=== PATIENT | female | born 1960 | race Caucasian/White ===

== ENCOUNTER 2018-04-11 19:46 | Emergency (ER) | payer MEDICARE ==
[~2018-04-11] VITALS: Ht 157.5 cm; Wt 113.4 kg
[~2018-04-11 19:46] MED LIST: ACCUPRIL40 MG PO; APPLE CIDER VI500 MG PO; ASPIRIN EC81 MG PO; BACTRIM DS TAB1 EACH PO; DICLOFENAC SODI75 MG PO; DOK100 MG PO; EFFEXOR XR150 MG PO; FENOFIBRATE160 MG PO; K-TAB ER20 MEQ PO; MEDROL4 M1 PO; METOPROLOL SUCC25 MG PO; MULTI VITAMIN1 EACH PO; NORCO 10-325 T1 EACH PO; PLAQUENIL200 MG PO; POTASSIUM CHLO20 ME1 PO; SIMVASTATIN20 MG PO; TOPAMAX100 MG PO; TRAZODONE HCL50 MG PO; TRIAMTERENE-HC1 EAC1 PO; VENLAFAXINE HCL75 MG PO; VITAMIN D32000 UNIT PO; WELLBUTRIN SR100 MG PO
--- OUTSIDE RECORDS SUMMARY | 2018-04-11 19:48 | XMS ---
PreManage Notification: KELLY WELDON Security Software Consultant Events No recent Security Events currently on file CRITERIA MET - PARESHP CARE PROVIDERS Carlos Degroot Current PHONE: Unknown Robert has no Care Guidelines for this patient. [facility] VISIT COUNT (12 MO.) 1 SHANIQU[facility] [place] TOTAL 1 NOTE: Visits indicate total known visits. ED/UCC VISIT TRACKING (12 MO.) 04/11/2018 19:[address] [facility] [place] TYPE: Emergency COMPLAINT: - MEDICAL CLEARANCE INPATIENT VISIT TRACKING (12 MO.) No inpatient visits to display in this time frame [id number]
[2018-04-11] MEDS ORDERED: VENLAFAXINE HCL75 MG PO (20:24)
== END 2018-04-12 07:03 | disposition home or self-care (01) ==
LOC: ED 19:46
PROC: 0T9B70Z Drainage of Bladder with Drainage Device, Via Natural or Artificial Opening (ICD-10-PCS; principal; 2018-04-11)
DX: R46.1 Bizarre personal appearance (principal); M32.9 Systemic lupus erythematosus, unspecified; Z90.710 Acquired absence of both cervix and uterus; Z88.7 Allergy status to serum and vaccine; Z88.8 Allergy status to other drugs, medicaments and biological substances; Z79.899 Other long term (current) drug therapy; Z79.82 Long term (current) use of aspirin; Z51.81 Encounter for therapeutic drug level monitoring
CPT/HCPCS: 51701; 70450; 80053; 80176; 81001; 84443; 85025; 85610; 85730; 99285-25; G0480; J1885; J2405; J2765

== ENCOUNTER 2018-07-25 12:39 | Emergency (ER) | payer MEDICARE ==
[~2018-07-25] VITALS: Ht 157.5 cm; Wt 113.4 kg
--- OUTSIDE RECORDS SUMMARY | ~2018-07-25 | XMS | Encounter Summary ---
Demographics + + + | Address | [address] | | | [place] [address] | + + + | Home Phone | | + + + | Preferred Language | Unknown | + + + | Marital Status | | + + + | Nondenominational Affiliation | Unknown | + + + | Race | White | + + + | Ethnic Group | Not or | + + + Author + + + | Author | [facility] | + + + | Organization | [facility] | + + + | Address | Unknown | + + + | Phone | Unavailable | + + + Support + + +---------+ + | Name | Relationship | Address | Phone | + + +---------+ + | Murtaza Mancera | ECON | Unknown | | + + +---------+ + Care Team Providers + +------+ + | Care Jewelry Dipper Name | Role | Phone | + +------+ + | Carlos Degroot MD | PCP | | + +------+ + Reason for Referral Diagnostic Testing +--------+--------+ + + + + | Status | Reason | Specialty | Diagnoses / | Referred By | Referred To | | | | | Procedures | Contact | Contact | +--------+--------+ + + + + | Closed | | Clinical | Procedures | Cnl Eeg | Cnl Eeg Hrc | | | | Neurophysiolo | EEG | Hrc [address] | | | | gy | ROUTINE | [address] | | | | | | [facility] | [address] | | | | | | Road | Mailcode: | | | | | | Mailcode: | CR[address] | | | | | | [address] | [place] | | | | | | [address] | Research | | | | | | Research | Center | | | | | | Center | [place], [place] | | | | | | [place], [place] | [address] | | | | | | [address] | Phone: | | | | | | Phone: | [phone] | | | | | | [phone] | Fax: | | | | | | Fax: | [phone] | | | | | | [phone] | | +--------+--------+ + + + + Encounter Details +--------+ + + + + | Date | Type | Department | Care Team | Description | +--------+ + + + + | 06/01/ | Outside | Neurophysiology | Carlos Degroot | | | 2012 | Referral | EEG at [facility] [address] | MD FELICIA Pérez | | | | Order | [facility] | [facility] | | | | | Road Mailcode: | [address] | | | | | [address] | [place] [address] | | | | | [facility] | [phone] | | | | | [place], [place] | | | | | | [address] | | | | | | [phone] | | | +--------+ + + + + Social History + +-------+ +--------+------+ | Tobacco Use | Types | Packs/Day | Years | Date | | | | | Used | | + +-------+ +--------+------+ | Never Assessed | | | | | + +-------+ +--------+------+ + + + | Sex Assigned at | Date Recorded | | | | + + + | Not on file | | + + + + + + + | Job Start Date | Occupation | Industry | + + + + | Not on file | Not on file | Not on file | + + + + + + + + | Travel History | Travel Start | Travel End | + + + + + + | No recent travel history available. | + + documented as of this encounter Plan of Treatment Not on filedocumented as of this encounter Procedures + +--------+ + + + | Procedure Name | Priori | Date/Time | Associated Diagnosis | Comments | | | ty | | | | + +--------+ + + + | EEG ROUTINE | Routin | 05/31/2012 | | Results for this | | | e | | | procedure are in the | | | | | | results section. | + +--------+ + + + documented in this encounter Results EEG ROUTINE (05/31/2012) + + | Specimen | + + | | + + + + + | Narrative | Performed At | + + + | Patient Name: Violet Gonzalez Date of : 1960 | [facility] | | Date of Test: 05/31/2012 Place | HOSPITAL | | of Service: [facility] Department: EEG [facility] - [id number] | | | ROUTINE EEG Indication: 51 year old woman with diagnosis of SLE, | | | now with speech difficulties and tremor. Evaluate for focal or | | | epileptiform abnormalities. Medications: Venlafaxine, and | | | others. Not on anti-seizure medication. Methods: This study was | | | a Routine EEG with a duration of 25 minutes. The digital recording | | | was performed with routine electrodes applied according to the 10-20 | | | electrode placement system. The record included video, EKG, and EOG | | | monitoring. EEG was reviewed electronically. Automated digital spike | | | and seizure detection analysis was used, along with patient-activated | | | alarms and nursing observations. EEG Description Interictal | | | Record: The record shows a symmetric, well-modulated, posterior | | | dominant rhythm of 10 Hz that attenuates with eye opening. Photic | | | stimulation results in a symmetric photic driving response. Sleep is | | | not recorded. Events/Seizures: No events or seizures are | | | recorded. EKG: The single-channel EKG recording shows a normal | | | sinus rhythm. Interpretation: This is a normal awake routine | | | EEG. No epileptiform abnormalities are present. No seizures are | | | recorded. A normal EEG does not rule out a clinical diagnosis of | | | epilepsy. Myesha Haney M.D. Suggested CPT: 95988 - EEG | | | Routine Awake Only Suggested Dx: 780.39 - Convulsions | | | Electronically signed on 06/01/2012 at 1:37 PM MYESHA HANEY MD. | | | | | + + + + +---------+ + + | Performing | Address | City/State/Zipcode | Phone Number | | Organization | | | | + +---------+ + + | [facility] | | | [phone] | | [facility] | | | | + +---------+ + + | [facility] | | [place] | [phone] | | [facility] | | | | + +---------+ + + documented in this encounter Visit Diagnoses Not on filedocumented in this encounter"
--- OUTSIDE RECORDS SUMMARY | ~2018-07-25 | XMS | Encounter Summary ---
Demographics + + + | Address | [address] | | | [place] [address] | + + + | Home Phone | | + + + | Preferred Language | Unknown | + + + | Marital Status | | + + + | Sikhism Affiliation | Unknown | + + + | Race | White | + + + | Ethnic Group | Not or | + + + Author + + + | Author | [facility] | + + + | Organization | [facility] | + + + | Address | Unknown | + + + | Phone | Unavailable | + + + Support + + +---------+ + | Name | Relationship | Address | Phone | + + +---------+ + | Murtaza Mancera | ECON | Unknown | | + + +---------+ + Care Team Providers + +------+ + | Care Flatcar Whacker Name | Role | Phone | + +------+ + PCP | Unavailable | + +------+ + Encounter Details +--------+ + + + + | Date | Type | Department | Care Team | Description | +--------+ + + + + | 08/29/ | Document-Sc | UNKNOWN DEPARTMENT | Unknown . | | | 2013 | anned | [address] | | | | | | [facility] | | | | | | [place], [place] | | | | | | [address] | | | +--------+ + + + [...] Not on filedocumented as of this encounter Visit Diagnoses Not on filedocumented in this encounter"
--- OUTSIDE RECORDS SUMMARY | ~2018-07-25 | XMS | Encounter Summary ---
Demographics + + + | Address | [address] | | | [place] [address] | + + + | Home Phone | | + + + | Preferred Language | Unknown | + + + | Marital Status | | + + + | Denominational Affiliation | Unknown | + + + | Race | White | + + + | Ethnic Group | Not or | + + + Author + + + | Author | [facility] | + + + | Organization | [facility] | + + + | Address | Unknown | + + + | Phone | Unavailable | + + + Support + + +---------+ + | Name | Relationship | Address | Phone | + + +---------+ + | Murtaza Mancera | ECON | Unknown | | + + +---------+ + Care Team Providers + +------+ + | Care Analytical Strategist Name | Role | Phone | + +------+ + | Carlos Degroot MD | PCP | | + +------+ + Encounter Details +--------+ + + + + | Date | Type | Department | Care Team | Description | +--------+ + + + + | 09/08/ | Document-Sc | Health Information | Unknown . | | | 2014 | anned | Services [address] | | | | | | [address] | | | | | | Road Mailcode: | | | | | | [address] | | | | | | [facility] | | | | | | [place], [place] | | | | | | [address] | | | | | | [phone] | | | +--------+ + + + [...] | + +--------+ + + + | RADIOLOGY | | 09/08/2014 | | Results for this | | | | 12:00 AM | | procedure are in the | | | | PDT | | results section. | + +--------+ + + + documented in this encounter Results RADIOLOGY (09/08/2014 12:00 AM PDT) + + + | Narrative | Performed At | + + + | | | + + + documented in this encounter Visit Diagnoses Not on filedocumented in this encounter"
--- OUTSIDE RECORDS SUMMARY | ~2018-07-25 | XMS | Clinical Summary ---
Demographics + + + | Address | [address] | | | [place] [address] | + + + | Home Phone | | + + + | Preferred Language | Unknown | + + + | Marital Status | | + + + | Faith Affiliation | 1013 | + + + | Race | Unknown | + + + | Ethnic Group | Unknown | + + + Author + + + | Author | [facility] | + + + | Organization | [facility] | + + + | Address | Unknown | + + + | Phone | Unavailable | + + + Support + + +---------+ + | Name | Relationship | Address | Phone | + + +---------+ + | Joselito Garcia And | ECON | Unknown | | | Jacqueline | | | | + + +---------+ + Care Team Providers + +------+ + | Care Living Advisor Name | Role | Phone | + +------+ + | Carlos Degroot MD | PP | | + +------+ + Allergies + + + + + + | Active Allergy | Reactions | Severity | Noted | Comments | | | | | Date | | + + + + + + | Flu Virus Vaccine | Swelling | Medium | 02/27/19 | | | | | | 16 | | + + + + + + | Droperidol | Hallucinations , | Medium | 02/08/20 | Extrapyramidal | | | Other (See Comments) | | 14 | symptoms | + + + + + + | Methotrexate | Rash | Medium | /16/20 | And sores on skin | | Derivatives | | | 14 | Sore | + + + + + + | Tuberculin Purified | Swelling | Medium | /16/20 | Drug: PPD; | | Protein Derivative | | | 14 | Reaction: Swelling | | | | | | in arm | + + + + + + | Tetanus Toxoid | Swelling | Medium | //20 | | | | | | 16 | | + + + + + + | Tetanus Toxoids | Swelling | Medium | 12/16/20 | Drug: PPD; | | | | | 14 | Reaction: Swelling | | | | | | in arm | + + + + + + Current Medications + + +--------+---------+------+------+-------+ | Prescription | Sig. | Disp. | Refills | Star | End | Statu | | | | | | t | Date | s | | | | | | Date | | | + + +--------+---------+------+------+-------+ | methylPREDNISolone | Take 4 mg by mouth | | | | | Activ | | (MEDROL) 4 MG | as needed. | | | | | e | | tablet | | | | | | | + + +--------+---------+------+------+-------+ | | Take 1-2 tablets by | | | | | Activ | | HYDROcodone-acetamin | mouth every 6 (six) | | | | | e | | ophen (NORCO) 10-325 | hours as needed for | | | | | | | MG per tablet | Pain. | | | | | | + + +--------+---------+------+------+-------+ | traZODone | Take 100 mg by mouth | | | | | Activ | | (DESYREL) 50 MG | as needed. | | | | | e | | tablet | | | | | | | + + +--------+---------+------+------+-------+ | diclofenac | Take 75 mg by mouth | | | | | Activ | | (VOLTAREN) 75 MG EC | 2 (two) times daily. | | | | | e | | tablet | | | | | | | + + +--------+---------+------+------+-------+ | venlafaxine | Take 150 mg by mouth | | | | | Activ | | (EFFEXOR-XR) 150 MG | daily with | | | | | e | | 24 hr capsule | breakfast. | | | | | | + + +--------+---------+------+------+-------+ | | Take 1 tablet by | | | | | Activ | | triamterene-hydrochl | mouth daily. | | | | | e | | orothiazide | | | | | | | | (MAXZIDE-25) 37.5-25 | | | | | | | | MG per tablet | | | | | | | + + +--------+---------+------+------+-------+ | aspirin 81 MG | Take 81 mg by mouth | | | | | Activ | | tablet | 2 (two) times daily. | | | | | e | + + +--------+---------+------+------+-------+ | metoprolol | Take 25 mg by mouth | | | | | Activ | | (TOPROL-XL) 25 MG 24 | daily. | | | | | e | | hr tablet | | | | | | | + + +--------+---------+------+------+-------+ | Fenofibrate 150 MG | Take by mouth. | | | | | Activ | | CAPS | | | | | | e | + + +--------+---------+------+------+-------+ | simvastatin | Take 40 mg by mouth | | | | | Activ | | (ZOCOR) 40 MG tablet | daily. | | | | | e | + + +--------+---------+------+------+-------+ | potassium chloride | Take 20 mEq by mouth | | | | | Activ | | (KLOR-CON) 20 MEQ | daily. | | | | | e | | packet | | | | | | | + + +--------+---------+------+------+-------+ | buPROPion | Take 300 mg by mouth | | | | | Activ | | (WELLBUTRIN XL) 300 | every morning. | | | | | e | | MG 24 hr tablet | | | | | | | + + +--------+---------+------+------+-------+ | APPLE CIDER | Take 150 mg by | | | | | Activ | | VINEGAR PO | mouth. | | | | | e | + + +--------+---------+------+------+-------+ | topiramate | Take 1 tablet by | 90 | 5 | 04/0 | | Activ | | (TOPAMAX) 100 MG | mouth 2 (two) times | tablet | | 3/20 | | e | | tablet | daily. Take 1.5 tabs | | | 18 | | | | | by mouth twice | | | | | | | | daily. | | | | | | + + +--------+---------+------+------+-------+ | sulfaSALAzine | Take 2 tablets by | 120 | 3 | 04/0 | | Activ | | (AZULFIDINE) 500 MG | mouth 2 (two) times | tablet | | 3/20 | | e | | tabletIndications: | daily. | | | 18 | | | | Systemic lupus | | | | | | | | erythematosus, | | | | | | | | unspecified SLE | | | | | | | | type, unspecified | | | | | | | | organ involvement | | | | | | | | status (HCC) | | | | | | | + + +--------+---------+------+------+-------+ | aspirin EC 81 MG | Take 81 mg by mouth | | | | | Activ | | EC tablet | 2 (two) times daily. | | | | | e | + + +--------+---------+------+------+-------+ | Cholecalciferol | Take 2,000 Units by | | | | | Activ | | (VITAMIN D3) 2000 | mouth. | | | | | e | | units capsule | | | | | | | + + +--------+---------+------+------+-------+ | KLOR-CON M20 20 | | | | 07/0 | | Activ | | MEQ tablet | | | | 9/20 | | e | | | | | | 18 | | | + + +--------+---------+------+------+-------+ | hydroxychloroquine | Take 2 tablets every | 60 | 3 | 07/1 | | Activ | | (PLAQUENIL) 200 MG | morning | tablet | | 6/20 | | e | | tablet | | | | 18 | | | + + +--------+---------+------+------+-------+ Active Problems + + + | Problem | Noted Date | + + + | Anxiety | 09/07/2017 | + + + | Depression | 09/07/2017 | + + + | Headache | 09/07/2017 | + + + | Hypertension | 09/07/2017 | + + + | High cholesterol | 09/07/2017 | + + + | Neuropathy | 09/07/2017 | + + + | Systemic lupus erythematosus (HCC) | 05/26/2017 | + + + + + | Last Assessment & Plan: Patient does have a Positive BRIAN | | with low titer dsDNA of 7. We will keep this as a running | | diagnosis but the polyarthralgia's could be linked to UCTD and | | not actually lupus. - she has had marked improvement on the HCQ | | and SSZ - we will continue treatment of care and make no changes | | at this time | + + + + + | Polyarthritis | 05/26/2017 | + + + + + | Last Assessment & Plan: The patient originally presented with | | the complaints of joint pain in her PIP, wrist and feet. She has | | had marked improvement in her joint pain and states she is | | feeling the best she has felt in quite some time in regards to | | her autoimmune. We will make no changes at this time and see her | | back in 4 months as well as update blood work | + + + + + | High risk medication use | 05/26/2017 | + + + + + | Last Assessment & Plan: Counseled regarding medication | | compliance as well as potential toxicities with medications such | | as cytopenias, liver abnormalities and risks for infection, and | | the need for routine blood work monitoring. Basic labs Monitored | | (CBC,CMP and ESR): OrderedLabs routinely ordered due to high | | risk medication use- Monitored for cytopenias, liver toxicity, | | renal dysfunction and disease activity. Hepatitis panel negative | | 02/2015 This will be checked every 5 years based on patients risk | | or at time of biologic drug change. Eye exam satisfactory - | | letter given to obtain The major posible side effect of | | Plaquenil is retinal toxicity, which is very rare at the dose we | | use (which is less than 5 mg/kg per day). This side effect | | happens 1 in 5000 usually after 5 years of use. To detect this | | possibility they will need to be seen by an railway signal technician at | | least once a year. | + + + + + | Acute adrenal crisis (HCC) | 08/23/2014 | + + + | Hypotension arterial | 08/22/2014 | + + + | Pseudotumor cerebri | 07/12/2014 | + + + Family History + +------+--------+ + | Relation | Name | Status | Comments | + +------+--------+ + | Father | | Alive | | + +------+--------+ + | Mother | | Alive | | + +------+--------+ + Social History + +-------+ +--------+------+ | Tobacco Use | Types | Packs/Day | Years | Date | | | | | Used | | + +-------+ +--------+------+ | Never Smoker | | | | | + +-------+ +--------+------+ + +---+---+---+ | Smokeless Tobacco: | | | | | Never Used | | | | + +---+---+---+ + + | Tobacco Cessation: Counseling Given: No | + + + + +---------+ + | Alcohol Use | Drinks/We | oz/Week | Comments | | | ek | | | + + +---------+ + | No | | | | + + +---------+ + + + + | Sex Assigned at | Date Recorded | | | | + + + | Not on file | | + + + Last Filed Vital Signs + + + + | Vital Sign | Reading | Time Taken | + + + + | Blood Pressure | 144/90 | 09/07/2017 12:09 PM PDT | + + + + | Pulse | 76 | 09/07/2017 12:09 PM PDT | + + + + | Temperature | 37.2 C (99 F) | 09/07/2017 12:09 PM PDT | + + + + | Respiratory Rate | 14 | 08/07/2017 8:02 AM PDT | + + + + | Oxygen Saturation | 97% | 08/25/2017 1:31 PM PDT | + + + + | Inhaled Oxygen | - | - | | Concentration | | | + + + + | Weight | 108.9 kg (240 lb) | 09/07/2017 12:09 PM PDT | + + + + | Height | 157.5 cm (5' 2") | 09/07/2017 12:09 PM PDT | + + + + | Body Mass Index | 43.9 | 09/07/2017 12:09 PM PDT | + + + + Plan of Treatment + + + + + | Health Maintenance | Due Date | Last Done | Comments | + + + + + | Cervical Cancer | | | | | Screening (Pap) | 2 | | | + + + + + | Breast Cancer | | | | | Screening | 2 | | | | (Mammogram) | | | | + + + + + | Colon Cancer | | | | | Screening | 2 | | | | (Colonoscopy) | | | | + + + + + | Vaccine: Zoster (1 | | | | | of 2) | 2 | | | + + + + + Results Not on filefrom Last 3 Months Insurance + +--------+ +------+-------+ + | Payer | Benefi | Subscriber | Type | Phone | Address | | | t Plan | ID | | | | | | / | | | | | | | Group | | | | | + +--------+ +------+-------+ + | MEDICARE | MEDICA | [id number] | | | [address] | | | RE | | | | [place] [address] | | | IP-OP | | | | | + +--------+ +------+-------+ + | [facility] | UNITED | [id number] | | | | | | | | | | | | | HEALTH | | | | | | | CARE - | | | | | | | AARP | | | | | + +--------+ +------+-------+ + + +--------+ +--------+ + + | Guarantor Name | Accoun | Relation to | Date | Phone | Billing Address | | | t Type | Patient | of | | | | | | | | | | + +--------+ +--------+ + + | KELLY WELDON | Person | Self [birth year] Home: | [address] | | | al/Fam | | 1961 | [phone] | [place] [address] | | | suzy | | | [phone] | | + +--------+ +--------+ + +
--- OUTSIDE RECORDS SUMMARY | ~2018-07-25 | XMS | Clinical Summary ---
Demographics + + + | Address | [address] | | | [place] [address] | + + + | Home Phone | | + + + | Preferred Language | Unknown | + + + | Marital Status | | + + + | Hinduism Affiliation | 1013 | + + + | Race | Unknown | + + + | Ethnic Group | Unknown | + + + Author + + + | Author | [facility] | + + + | Organization | [facility] | + + + | Address [...] Team Providers + +------+ + | Care Vacuum Cleaner Operator Name | Role | Phone | + [...] will need to be seen by an dice manager at | | least once a year. [...] +------+-------+ + | MEDICARE | MEDICA | [id number] | | | [address] | | | RE | | | | [place] [address] | | | IP-OP | | | | | + +--------+ +------+-------+ + | [facility] | [place] | [id number] | | | | | | | [...] | 1961 | [phone] | [place] [address] | | | suzy | | | [phone] | | + +--------+ +--------+ + +
--- OUTSIDE RECORDS SUMMARY | ~2018-07-25 | XMS | Clinical Summary ---
Demographics + + + | Address | [address] | | | [place] [address] | + + + | Home Phone | | + + + | Preferred Language | Unknown | + + + | Marital Status | | + + + | Baptist Affiliation | 1013 | + + + | Race | Unknown | + + + | Ethnic Group | Unknown | + + + Author + + + | Author | [facility] | | | and [place] | + + + | Organization | [facility] | | | and [place] | + + + | Address | Unknown | + + + | Phone | Unavailable | + + + Support + + + + + | Name | Relationship | Address | Phone | + + + + + | Joselito Garcia | ECON | [place] | | | | | [address] | | + + + + + | Jacqueline Garcia | ECON | Unknown | | + + + + + Care Team Providers + +------+ + | Care Ux Engineer Name | Role | Phone | + +------+ + | Carlos Degroot | PP | | | MD | | | + +------+ + Allergies + + + + + + | Active Allergy | Reactions | Severity | Noted | Comments | | | | | Date | | + + + + + + | Droperidol | Other (See Comments) | Low | 12/16/20 | Extrapyramidal | | | | | 14 | symptoms | + + + + + + | Influenza Vaccines | Swelling | Low | 12/16/20 | Drug: PPD; | | | | | 14 | Reaction: Swelling | | | | | | in arm | + + + + + + | Methotrexate | Rash | Low | 12/16/20 | And sores on skin | | Derivatives | | | 14 | | + + + + + + | Tetanus Toxoids | Swelling | Low | 12/16/20 | Drug: PPD; | | | | | 14 | Reaction: Swelling | | | | | | in arm | + + + + + + | Tuberculin Purified | Swelling | Low | 02/08/20 | Drug: PPD; | | Protein Derivative | | | 14 | Reaction: Swelling | | | | | | in arm | + + + + + + Medications + + + +---------+------+------+-------+ | Medication | Sig | Dispensed | Refills | Star | End | Statu | | | | | | t | Date | s | | | | | | Date | | | + + + +---------+------+------+-------+ | quinapril | Take 40 mg by mouth | | 0 | | | Activ | | (ACCUPRIL) 40 MG | Daily. | | | | | e | | tablet | | | | | | | + + + +---------+------+------+-------+ | metoprolol | Take 25 mg by mouth | | 0 | | | Activ | | succinate | Daily. | | | | | e | | (TOPROL-XL) 25 mg 24 | | | | | | | | hr tablet | | | | | | | + + + +---------+------+------+-------+ | aspirin 81 mg EC | Take 81 mg by mouth | | 0 | | | Activ | | tablet | Daily. | | | | | e | + + + +---------+------+------+-------+ | | Take 1 tablet by | | 0 | | | Activ | | triamterene-hydrochl | mouth Daily. | | | | | e | | orothiazide | | | | | | | | (MAXZIDE-25) 37.5-25 | | | | | | | | mg per tablet | | | | | | | + + + +---------+------+------+-------+ | venlafaxine | Take 150 mg by mouth | | 0 | | | Activ | | (EFFEXOR XR) 150 mg | Daily. | | | | | e | | 24 hr capsule | | | | | | | + + + +---------+------+------+-------+ | fenofibrate | Take 160 mg by mouth | | 0 | | | Activ | | (LOFIBRA, TRIGLIDE) | Daily. | | | | | e | | 160 mg tablet | | | | | | | + + + +---------+------+------+-------+ | diclofenac | Take 75 mg by mouth | | 0 | | | Activ | | (VOLTAREN) 75 mg EC | 2 times daily. | | | | | e | | tablet | | | | | | | + + + +---------+------+------+-------+ | traZODone | Take 50 mg by mouth | | 0 | | | Activ | | (DESYREL) 50 mg | nightly. | | | | | e | | tablet | | | | | | | + + + +---------+------+------+-------+ | hydrOXYzine | Take 25 mg by mouth | | 0 | | | Activ | | pamoate (VISTARIL) | 3 times daily as | | | | | e | | 25 mg capsule | needed. | | | | | | + + + +---------+------+------+-------+ | | Take 1 tablet by | | 0 | | | Activ | | HYDROcodone-acetamin | mouth every 6 hours | | | | | e | | ophen (NORCO) 10-325 | as needed. | | | | | | | mg per tablet | | | | | | | + + + +---------+------+------+-------+ | Cholecalciferol | Take 2,000 Units by | | 0 | | | Activ | | (VITAMIN D-3) 2000 | mouth Daily. | | | | | e | | units CAPS | | | | | | | + + + +---------+------+------+-------+ | ibuprofen (ADVIL, | Take 200 mg by mouth | | 0 | | | Activ | | MOTRIN) 200 mg | every 8 hours as | | | | | e | | tablet | needed for Pain. | | | | | | + + + +---------+------+------+-------+ | simvastatin | Take 40 mg by mouth | | 0 | | | Activ | | (ZOCOR) 40 mg tablet | nightly. | | | | | e | + + + +---------+------+------+-------+ | hydroxychloroquine | Take 200 mg by mouth | | 0 | 06/2 | | Activ | | (PLAQUENIL) 200 mg | Daily. | | | 2/20 | | e | | tablet | | | | 15 | | | + + + +---------+------+------+-------+ | methylPREDNISolone | Take one tablet | 10 | 0 | 07/0 | | Activ | | (MEDROL) 2 MG | daily for five days, | tablet | | /20 | | e | | tablet | then one half | | | 15 | | | | | tablet daily for | | | | | | | | five days, then one | | | | | | | | half tablet every | | | | | | | | other day. | | | | | | + + + +---------+------+------+-------+ Active Problems + + + | Problem | Noted Date | + + + | Acute adrenal crisis | 08/23/2014 | + + + | Difficult airway for intubation, initial encounter | 08/22/2014 | + + + + + | Overview: Yljzzpmtl-gl-agxzgnyjsx mask ventilation, although | | limits of two provider face mask not attempted.Difficult | | intubation for surgery on 08/22/14, with anterior Grade 2 view of | | with Mac 3 Blade w/ BURP, but unable to pass styletted | | ETT.Utilizing Broderick 4, modified Grade 1 view achieved with BURP | | at the very top of the screen. Styletted ETT passed, but | | technically challenging. | + + + + + | Hypotension | 08/22/2014 | + + + | Hypoxia | 08/22/2014 | + + + | Hypotension arterial | 08/22/2014 | + + + | Pseudotumor cerebri | 07/12/2014 | + + + | Anxiety | | + + + | Neuropathy | | + + + | Depression | | + + + | High blood pressure | | + + + | High cholesterol | | + + + | Lupus | | + + + | Headache | | + + + Family History + + +------+ + | Medical History | Relation | Name | Comments | + + +------+ + | Bipolar disorder | Daughter | | | + + +------+ + | Arthritis | Father | | | + + +------+ + | COPD | Father | | | + + +------+ + | Hypertension | Father | | | + + +------+ + | Arthritis | Mother | | | + + +------+ + | Diabetes | Mother | | | + + +------+ + | Hypertension | Mother | | | + + +------+ + | Other (see comment) | Mother | | lung problems | + + +------+ + + +------+--------+ + | Relation | Name | Status | Comments | + +------+--------+ + | Daughter | | | | + +------+--------+ + | Father | | | | + +------+--------+ + | Mother | | | | + +------+--------+ + Social History + +-------+ +--------+------+ | Tobacco Use | Types | Packs/Day | Years | Date | | | | | Used | | + +-------+ +--------+------+ | Never Smoker | | | | | + +-------+ +--------+------+ + +---+---+---+ | Smokeless Tobacco: | | | | | Never Used | | | | + +---+---+---+ + + +---------+ + | Alcohol Use | Drinks/We | oz/Week | Comments | | | ek | | | + + +---------+ + | Yes | | | rare | + + +---------+ + + + [...] recent travel history available. | + + Last Filed Vital Signs + + + + | Vital Sign | Reading | Time Taken | + + + + | Blood Pressure | 123/64 | 08/23/2014899 PDT | + + + + | Pulse | 102 | 08/23/2014899 PDT | + + + + | Temperature | 37.6 C (99.7 F) | 08/23/2014811 PDT | + + + + | Respiratory Rate | 19 | 08/23/2014899 PDT | + + + + | Oxygen Saturation | 96% | 08/23/2014811 PDT | + + + + | Inhaled Oxygen | - | - | | Concentration | | | + + + + | Weight | 120.2 kg (264 lb | 08/23/2014629 PDT | | | 15.9 oz) | | + + + + | Height | 157.5 cm (5' 2.01") | 08/22/2014606 PDT | + + + + | Body Mass Index | 48.46 | 08/22/2014606 PDT | + + + + Plan [...] filefrom Last 3 Months Insurance + +--------+ +--------+ +---------+--------+ | Payer | Benefi | Subscriber | Effect | Phone | Address | Type | | | t Plan | ID | yelena | | | | | | / | | Dates | | | | | | Group | | | | | | + +--------+ +--------+ +---------+--------+ | MEDICARE | MEDICA | [id number] | 10/25/19 | [phone] | | Medica | | | RE | | 16-Pre | 5 | | re | | | PART A | | sent | | | | | | AND B | | | | | | + +--------+ +--------+ +---------+--------+ | AARP | AARP | [id number] | 02/23/19 | [phone] | | Indemn | | | MDCR | | 17-Pre | 0 | | ity | | | SUPPL | | sent | | | | + +--------+ +--------+ +---------+--------+ + +--------+ +--------+ + + | Guarantor Name | Accoun | Relation to | Date | Phone | Billing Address | | | t Type | Patient | of | | | | | | | | | | + +--------+ +--------+ + + | Violet Mancera | Person | Self [birth year] | [address] [employer] | | | al/Fam | | 2 | [phone] | [place] [address] | | | [place]zy | | | 1 (Home) | | + +--------+ +--------+ + + Advance Directives Patient has advance care planning documents, and code status on file. For more information, please contact:[facility] [place] [address] + + + + + | Code Status | Date | Date | Comments | | | Activated | Inactivated | | + + + + + | Full Code | 08/22/2014 | 08/23/2014 | | | | 9:34 | 13:17 | | + + + + +
--- OUTSIDE RECORDS SUMMARY | ~2018-07-25 | XMS | Encounter Summary ---
Demographics + + + | Address | [address] | | | [place] [address] | + + + | Home Phone | | + + + | Preferred Language | Unknown | + + + | Marital Status | | + + + | Yarsanism Affiliation | Unknown | + + + | Race | White | + + + | Ethnic Group | Not or | + + + Author + + + | Author | [facility] | + + + | Organization | [facility] | + + + | Address | Unknown | + + + | Phone | Unavailable | + + + Support + + +---------+ + | Name | Relationship | Address | Phone | + + +---------+ + | Murtaza Mancera | ECON | Unknown | | + + +---------+ + Care Team Providers + +------+ + | Care Surface Room Shop Optician Name | Role | Phone | + [...] Mailcode: | | | | | | [address] | | | | | | [facility] [place] | | | | | | [place], [place] | | | | | | [address] | | | | | | [phone] | | | +--------+ + + + [...]
--- OUTSIDE RECORDS SUMMARY | ~2018-07-25 | XMS | Encounter Summary ---
Demographics + + + | Address | [address] | | | [place] [address] | + + + | Home Phone | | + + + | Preferred Language | Unknown | + + + | Marital Status | | + + + | Synagogue Affiliation | Unknown | + + + | Race | White | + + + | Ethnic Group | Not or | + + + Author + + + | Author | [facility] | + + + | Organization | [facility] | + + + | Address | Unknown | + + + | Phone | Unavailable | + + + Support + + +---------+ + | Name | Relationship | Address | Phone | + + +---------+ + | Murtaza Mancera | ECON | Unknown | | + + +---------+ + Care Team Providers + +------+ + | Care Ice Guard Tester Name | Role | Phone | + +------+ + PCP | Unavailable | + +------+ + Encounter Details +--------+ + + + + | Date | Type | Department | Care Team | Description | +--------+ + + + + | 08/29/ | Document-Sc | UNKNOWN DEPARTMENT | Unknown . | | | 2013 | anned | [address] [facility] | | | | | | [facility] | | | | | | [place], [place] | | | | | | [address] | | | +--------+ + + + [...]
--- OUTSIDE RECORDS SUMMARY | ~2018-07-25 | XMS | Clinical Summary ---
Demographics + + + | Address | [address] | | | [place] [address] | + + + | Home Phone | | + + + | Preferred Language | Unknown | + + + | Marital Status | | + + + | Christianity Affiliation | Unknown | + + + | Race | White | + + + | Ethnic Group | Not or | + + + Author + + + | Author | [facility] | + + + | Organization | [facility] | + + + | Address | Unknown | + + + | Phone | Unavailable | + + + Support + + +---------+ + | Name | Relationship | Address | Phone | + + +---------+ + | Murtaza Mancera | ECON | Unknown | | + + +---------+ + Care Team Providers + +------+ + | Care Printed Circuit Board Preassembler Name | Role | Phone | + +------+ + | Carlos Degroot MD | PP | | + +------+ + Source Comments [facility] fully [facility] and [facility] InPatient.[facility] Allergies Not on File Medications Not on file Active Problems Not on file Social History + +-------+ +--------+------+ | Tobacco [...] recent travel history available. | + + Plan of Treatment + + + + + | Health Maintenance | Due Date | Last Done | Comments | + + + + + | Influenza (Flu) | | | | | vaccination (Season | 9 | | | | Ended) | | | | + + + + + Results Not on filefrom Last 3 Months Insurance +-------+--------+ +--------+ + +------+ | Payer | Benefi | Subscriber | Effect | Phone | Address | Type | | | t Plan | ID | yelena | | | | | | / | | Dates | | | | | | Group | | | | | | +-------+--------+ +--------+ + +------+ | MODA | MODA | xxxxxxxxx | 03/26/19 | [phone] | [address] | PPO | | | [place] | | 15-Pre | 4 | [address] | | | | [place] | | sent | | [place], | | | | | | | | [place] [address] | | +-------+--------+ +--------+ + +------+ + +--------+ +--------+ + + | Guarantor Name | Accoun | Relation to | Date | Phone | Billing Address | | | t Type | Patient | of | | | | | | | | | | + +--------+ +--------+ + + | Violet Mancera | Person | Self | [birth year] | [address] [employer] | | | al/Fam | | 1961 | [phone] | , [place] [address] | | | suzy | | | 1 (Home) | | + +--------+ +--------+ + + | Violet Mancera | Person | Self | [birth year] | | [address] [employer] | | | al/Fam | | 1961 | [phone] | , [place] [address] | | | suzy | | | 1 (Home) | | + +--------+ +--------+ + +"
--- OUTSIDE RECORDS SUMMARY | ~2018-07-25 | XMS | Encounter Summary ---
Demographics + + + | Address | [address] | | | [place] [address] | + + + | Home Phone | | + + + | Preferred Language | Unknown | + + + | Marital Status | | + + + | Sabianist Affiliation | Unknown | + + + | Race | White | + + + | Ethnic Group | Not or | + + + Author + + + | Author | [facility] | + + + | Organization | [facility] | + + + | Address | Unknown | + + + | Phone | Unavailable | + + + Support + + +---------+ + | Name | Relationship | Address | Phone | + + +---------+ + | Murtaza Mancera | ECON | Unknown | | + + +---------+ + Care Team Providers + +------+ + | Care Casting Repairer Name | Role | Phone | + [...] [place] | | | | | | [facility] | [address] | | | | | | Road | Mailcode: | | | | | | Mailcode: | [address] | | | | | | [address] | [place] | | | | | | [address] | Research | | | | | | Research | Center | | | | | | Center | [place], [place] | | | | | | [place], [place] | [address] | | | | | | [address] | Phone: | | | | | | Phone: | [phone] | | | | | | [phone] | Fax: | | | | | | Fax: | [phone] | | | | | | [phone] | | +--------+--------+ + + + + Encounter Details +--------+ + + + + | Date | Type | Department | Care Team | Description | +--------+ + + + + | 06/01/ | Outside | Neurophysiology | Carlos Degroot | | | 2012 | Referral | EEG at [facility] [address] | MD [place] [address] | | | | Order | [facility] | [facility] | | | | | Road Mailcode: | [address] | | | | | [address] | [place] [address] | | | | | [facility] | [phone] | | | | | [place], [place] | | | | | | [address] | | | | | | [phone] | | | +--------+ + + + [...] Place | HOSPITAL | | of Service: [facility] Department: EEG [facility] - [id number] | | | ROUTINE EEG Indication: 51 [...] | epilepsy. Myesha Haney M.D. Suggested CPT: 84062 - EEG | | | Routine Awake [...] + | [facility] | | | [phone] | | [facility] | | | | + +---------+ + + | [facility] | | [place] | [phone] | | HOSPITAL | | | | + +---------+ + + documented in this encounter Visit Diagnoses Not on filedocumented in this encounter"
--- OUTSIDE RECORDS SUMMARY | ~2018-07-25 | XMS | Clinical Summary ---
Demographics + + + | Address | [address] | | | [place] [address] | + + + | Home Phone | | + + + | Preferred Language | Unknown | + + + | Marital Status | | + + + | Muslim Affiliation | 1013 | + + + | Race | Unknown | + + + | Ethnic Group | Unknown | + + + Author + + + | Author | [facility] | | | and [place] | + + + | Organization | [facility] | | | and [place] | + + + | Address | Unknown | + + + | Phone | Unavailable | + + + Support + + + + + | Name | Relationship | Address | Phone | + + + + + | Joselito Garcia | ECON | [place] | | | | | [address] | | + + + + + | Jacqueline Garcia | ECON | Unknown | | + + + + + Care Team Providers + +------+ + | Care Cake Puncher Name | Role | Phone | + [...] + + + + + | Overview: Safaabbfv-kq-bevxqlxldk mask ventilation, although | | limits of [...] +--------+ +---------+--------+ | MEDICARE | MEDICA | [id number] | 10/25/19 | [phone] | | Medica | | | RE | | 16-Pre | 5 | | re | | | PART A | | sent | | | | | | AND B | | | | | | + +--------+ +--------+ +---------+--------+ | AARP | AARP | [id number] | 02/23/19 | [phone] | | Indemn [...] | [birth year] | | [address] [employer] MANAGER | | | al/Fam | | 2 | [phone] | [place] [address] | | | suzy | | | 1 (Home) | | + +--------+ +--------+ + + Advance Directives Patient has advance care planning documents, and code status on file. For more information, please contact:[facility] [place] [address] + + + + + | Code Status | Date | Date | Comments | | | Activated | Inactivated | | + + + + + | Full Code | 08/22/2014 | 08/23/2014 | | | | 9:34 | 13:17 | | + + + + +
--- OUTSIDE RECORDS SUMMARY | ~2018-07-25 | XMS | Clinical Summary ---
Demographics + + + | Address | [address] | | | [place] [address] | + + + | Home Phone | | + + + | Preferred Language | Unknown | + + + | Marital Status | | + + + | Holiness Affiliation | Unknown | + + + [...] Team Providers + +------+ + | Care Petroleum Inspector Name | Role | Phone | + +------+ + | Carlos Degroot MD | PP | | + +------+ + Source Comments [facility] is fully live [facility] and [facility] InPatient.[facility] Allergies Not on File Medications Not on [...] | MODA | xxxxxxxxx | 03/26/19 | [phone] | [address] | PPO | | | [place] | | 15-Pre | 4 | [address] | | | | [place] | | sent | | [place], | | | | | | | | [place] [address] | | +-------+--------+ +--------+ + +------+ + [...] | [birth year] | | [address] [place] | | | al/Fam | | 1961 | [phone] | , [place] [address] | | | suzy | | | 1 (Home) | | + +--------+ +--------+ + + | Violet Mancera | Person | Self | [birth year] | | [address] [place] | | | al/Fam | | 1961 | [phone] | , [place] [address] | | | suzy | | | 1 (Home) | | + +--------+ +--------+ + +"
--- OUTSIDE RECORDS SUMMARY | 2018-07-25 12:42 | XMS ---
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 [facility] VISIT COUNT (12 MO.) 2 SHANIQUA Robles TOTAL 2 NOTE: Visits indicate total known visits. 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
[2018-07-25] MEDS ORDERED: METHYLPREDNISOLO4 M1 PO (14:17)
== END 2018-07-25 14:26 | disposition home or self-care (01) ==
LOC: ED 12:39
DX: M32.9 Systemic lupus erythematosus, unspecified (principal); Z88.7 Allergy status to serum and vaccine; Z88.8 Allergy status to other drugs, medicaments and biological substances; Z79.899 Other long term (current) drug therapy; Z79.82 Long term (current) use of aspirin
CPT/HCPCS: 71045; 80053; 85025; 85379; 93970; 99284-25

== ENCOUNTER 2019-11-24 15:04 | Emergency (ER) | payer MEDICARE ==
[~2019-11-24] VITALS: Ht 157.5 cm; Wt 117.9 kg
[~2019-11-24 15:04] MED LIST changes: +METHYLPREDNISOLO4 M1 PO; +PEPTO-BISM262 MG/15 PO; +ZOFRAN4 MG PO
[2019-11-24] MEDS ORDERED: LORAZEPAM2 MG PO (15:48)
[2019-11-24] MEDS ORDERED: VENLAFAXINE HCL75 M1 PO (15:49)
--- OUTSIDE RECORDS SUMMARY | 2019-11-24 17:08 | XMS ---
PreManage Notification: KELLY WELDON Security Fourth Officer Events No recent Security Events currently on file CRITERIA MET - PDMP CARE PROVIDERS GERARD TERRELL [facility] 04/13/2018-Current PHONE: [phone] Robert has no Care Guidelines for this patient. [place] VISIT COUNT (12 MO.) 2 [facility] [place] TOTAL 2 NOTE: Visits indicate total known visits. ED/UCC VISIT TRACKING (12 MO.) 11/24/2019 15:04 [place] TYPE: Emergency COMPLAINT: - WEAKNESS 02/11/2019 14:27 [facility] [place] TYPE: Emergency COMPLAINT: - CHEST PAIN DIAGNOSES: - residential (current) use of aspirin - director long term care (current) use of systemic steroids - Allergy status to other drugs, medicaments and biological sub - Chest pain, unspecified - Allergy status to serum and vaccine status - Other residential (current) drug therapy - Essential (primary) hypertension - Palpitations INPATIENT VISIT TRACKING (12 MO.) No inpatient visits to display in this time frame [id number]
== END 2019-11-24 18:55 | disposition home or self-care (01) ==
LOC: ED 15:04
DX: R19.7 Diarrhea, unspecified (principal); I10 Essential (primary) hypertension; F32.9 Major depressive disorder, single episode, unspecified; F41.9 Anxiety disorder, unspecified; Z88.8 Allergy status to other drugs, medicaments and biological substances; Z88.7 Allergy status to serum and vaccine; Z79.899 Other long term (current) drug therapy; Z79.82 Long term (current) use of aspirin
CPT/HCPCS: 80053; 83735; 85025; 96361; 96374; 96375; 99284-25; J1885; J2405; J7030

== ENCOUNTER 2020-11-14 12:36 | Emergency (ER) | payer MEDICARE ==
[~2020-11-14] VITALS: Ht 157.5 cm; Wt 117.0 kg
[~2020-11-14 12:36] MED LIST changes: +LORAZEPAM2 MG PO; +VENLAFAXINE HCL75 M1 PO
--- OUTSIDE RECORDS SUMMARY | 2020-11-14 12:40 | XMS ---
PreManage Notification: KELLY WELDON Security Creative Coordinator Events 1 event(s) in the past 18 months Most recent security events: Elopement at [facility] 11/12/2020 12:17 - Other Details: PATIENT LWBS. CRITERIA MET - [facility] - [facility] in [facility] Days [facility] 11/13/2020-Current PHONE: [phone] Robert has no Care Guidelines for this patient. [place] VISIT COUNT (12 MO.) 3 [facility] TOTAL 3 NOTE: Visits indicate total known visits. ED/UCC VISIT TRACKING (12 MO.) 11/14/2020 12:38 [place] [place] TYPE: Emergency COMPLAINT: - DIARRHEA, WEAK, FAINT, RUNNY NOSE, VOMITING 11/12/2020 12:17 [facility] [place] TYPE: Emergency COMPLAINT: - FLU SYMPTOMS 11/24/2019 15:04 [place] [place] TYPE: Emergency COMPLAINT: - WEAKNESS DIAGNOSES: - halfway (current) use of aspirin - Essential (primary) hypertension - Allergy status to other drugs, medicaments and biological substances - Other terminal clerk (current) drug therapy - Anxiety disorder, unspecified - Diarrhea, unspecified - Major depressive disorder, single episode, unspecified - Allergy status to serum and vaccine INPATIENT VISIT TRACKING (12 MO.) No inpatient visits to display in this time frame [id number]
[2020-11-14] MEDS ORDERED: METOPROLOL SUC100 MG PO (15:27)
[2020-11-14] MEDS ORDERED: HYDROXYCHLOROQ200 MG PO (15:27)
--- NOTE | 2020-11-15 15:49 | EKG ---
[facility] [address] [facility] [place] [address] Signed Normal sinus rhythm Abnormal QRS-T angle, consider primary T wave abnormality Abnormal ECG When compared with ECG of 11-FEB-2019 14:32, Inverted T waves have replaced nonspecific T wave abnormality in Inferior leads Confirmed by CARYL YANG MD ([id number]) on 11/15/2020 3:49:12 PM Electronically Signed By: CARYL YANG MD 11/15/20 1549 PATIENT NAME: KELLY WELDON HERLINDA Electrocardiogram DATE OF : 62 PHYSICIAN: CARYL YANG MD REPORT #: [id number] REPORT IS CONFIDENTIAL AND NOT TO BE RELEASED WITHOUT AUTHORIZATION
== END 2020-11-14 19:01 | disposition home or self-care (01) ==
LOC: ED 12:36
DX: R11.2 Nausea with vomiting, unspecified (principal); R19.7 Diarrhea, unspecified; I10 Essential (primary) hypertension; M19.90 Unspecified osteoarthritis, unspecified site; D68.2 Hereditary deficiency of other clotting factors; Z88.7 Allergy status to serum and vaccine; Z88.8 Allergy status to other drugs, medicaments and biological substances; Z88.2 Allergy status to sulfonamides; Z79.899 Other long term (current) drug therapy; Z79.84 Long term (current) use of oral hypoglycemic drugs
CPT/HCPCS: 80053; 81001; 83690; 85025; 93005; 93010; 96374; 99285-25; J2405; J7030

== ENCOUNTER 2023-03-17 12:21 | Emergency (ER) | payer MEDICARE ==
[~2023-03-17] VITALS: Ht 157.5 cm; Wt 128.4 kg
[~2023-03-17 12:21] MED LIST changes: +HYDROXYCHLOROQ200 MG PO; +METOPROLOL SUC100 MG PO
--- OUTSIDE RECORDS SUMMARY | 2023-03-17 12:31 | XMS ---
PreManage Notification: KELLY WELDON Security Prime Minister Events 1 event(s) in the past 18 months Most recent security events: Elopement at [facility] 03/05/2023 10:06 - Patient eloped with IV in place. - Patient eloped before treatment completed. - Patient with suicidal and/or homicidal ideations eloped. Details: Patient LWBS CRITERIA MET - Group Notification - [facility] - 2 Visits in 30 Days CARE PROVIDERS GERARD TERRELL [facility] 11/13/2020-Current PHONE: Unknown Robert has no Care Guidelines for this patient. [place] VISIT COUNT (12 MO.) 2 [facility] TOTAL 2 NOTE: Visits indicate total known visits. ED/UCC VISIT TRACKING (12 MO.) 03/17/2023 12:23 [place] TYPE[place] Emergency COMPLAINT: - DEHYDRATED, LIGHT HEADED, L CALF SORE 03/05/2023 10:06 [place] [place] TYPE: Emergency COMPLAINT: - BOTH EARS PAIN/PRESSURE INPATIENT VISIT TRACKING (12 MO.) No inpatient visits to display in this time frame [email or web address]
[2023-03-17] MEDS ORDERED: BUPROPION XL150 MG PO (12:50)
[2023-03-17] MEDS ORDERED: LISINOPRIL40 MG PO (12:50)
[2023-03-17 14:05] VITALS: BP 160/101
== END 2023-03-17 14:05 | disposition home or self-care (01) ==
LOC: ED 12:21
DX: M79.662 Pain in left lower leg (principal); I10 Essential (primary) hypertension; M32.9 Systemic lupus erythematosus, unspecified; I47.10 Supraventricular tachycardia, unspecified; Z79.899 Other long term (current) drug therapy; Z79.82 Long term (current) use of aspirin; Z88.7 Allergy status to serum and vaccine; Z88.8 Allergy status to other drugs, medicaments and biological substances
CPT/HCPCS: 93971; 99283-25